=== PATIENT | male | born 1995 | race Caucasian/White ===

== ENCOUNTER 2017-02-15 19:46 | Emergency (ER) | payer SELFPAY ==
[2017-02-15] MEDS ORDERED: HYDROcodone/Acetaminophen 10/325 mg Tablet ONE (20:41)
[2017-02-15] MEDS ORDERED: Naproxen 500 MG TAB ONE (20:42)
[2017-02-15] MEDS ORDERED: Benzonatate 100 MG CAP ONE (20:42)
[2017-02-15] MEDS ORDERED: Bicillin LA 1.2 MILLION UNITS/2 ML SYRINGE ONE (20:42)
== END 2017-02-15 21:26 | disposition home or self-care (01) ==
LOC: MADERS 19:46
DX: J03.90 Acute tonsillitis, unspecified (principal); F17.210 Nicotine dependence, cigarettes, uncomplicated
CPT/HCPCS: 96372; J0561; J1040

== ENCOUNTER 2017-08-27 14:06 | Emergency (ER) | payer SELFPAY ==
[2017-08-27] MEDS ORDERED: Ondansetron ODT 4 MG TAB ONE (14:45)
== END 2017-08-27 14:57 | disposition home or self-care (01) ==
LOC: MADERS 14:06
DX: K52.9 Noninfective gastroenteritis and colitis, unspecified (principal); F32.9 Major depressive disorder, single episode, unspecified; F17.210 Nicotine dependence, cigarettes, uncomplicated
CPT/HCPCS: 99283; Q0162

== ENCOUNTER 2017-11-02 10:04 | Emergency (ER) | payer SELFPAY ==
[2017-11-02] MEDS ORDERED: HYDROcodone/Acetaminophen 10/325 mg Tablet ONE (10:27)
[2017-11-02] MEDS ORDERED: Ondansetron ODT 4 MG TAB ONE (10:27)
== END 2017-11-02 11:40 | disposition home or self-care (01) ==
LOC: MADERS 10:04
DX: R50.9 Fever, unspecified (principal); M79.1 Myalgia; F32.9 Major depressive disorder, single episode, unspecified; F17.210 Nicotine dependence, cigarettes, uncomplicated
CPT/HCPCS: 99283; Q0162

== ENCOUNTER 2019-04-08 09:47 | Emergency (ER) | payer SELFPAY | END 2019-04-08 11:15 | disposition home or self-care (01) | LOC: MADERS 09:47 | DX: L97.529 Non-pressure chronic ulcer of other part of left foot with unspecified severity (principal); L25.9 Unspecified contact dermatitis, unspecified cause; F32.9 Major depressive disorder, single episode, unspecified; F17.210 Nicotine dependence, cigarettes, uncomplicated | CPT/HCPCS: 99282 ==

== ENCOUNTER 2020-05-14 13:14 | Emergency (ER) | payer SELFPAY ==
[2020-05-14 14:44] LABS: Bilirubin Negative (Negative); Blood, Urine Trace (Negative); Glucose, Urine (Dipstick) Negative (Negative); Ketone, Urine Negative (Negative); Leukocyte Trace (Negative); Nitrite Negative (Negative); Protein, Urine (Dipstick) Negative (Neg-Trace); Urobilinogen 0.2 mg/dL (Less than 2); pH, Urine 5.5 (5.0-9.0)
[2020-05-14 14:49] LABS: Clarity Hazy (Clear); Specific Gravity, Urine 1.024 (1.002-1.036)
[2020-05-14 14:52] LABS: Bacteria/HPF Rare-Few HPF (None Seen); RBC/HPF 0-3 HPF (0-3); Sperm/HPF Rare HPF (None Seen); Squamous Epithelial 0-3 HPF (0-3); WBC/HPF 21-50 HPF (0-3)
--- NOTE | 2020-05-14 15:05 | ULT ---
ULTRASOUND SCROTUM AND TESTICLES DOPPLER DUPLEX: DATE: 05/14/2020 HISTORY: 24-year-old male with persistent posttraumatic right scrotal pain TECHNIQUE: Grayscale evaluation of intrascrotal contents. Color flow Doppler and spectral waveform analysis of t he testicles. FINDINGS: Bilateral testicles are normal in size and have homogeneously normal in echogenicity, with no evidenc e of laceration or fracture. There are tiny bilateral hydroceles. Not mentioned by the frame opener's notes, there are multiple structures adjacent to the testicles, ap parently within the scrotal sac bilaterally, that are questionable for bowel loops. There is no varicocele. Incidental finding of tiny 0.4 x 0.3 cm left epididymal cyst. IMPRESSION: 1) no evidence of traumatic injury of the testicles. 2) questionable bilateral inguinal-scrotal hernias. Recommend repeat scrotal ultrasound at [facility], [facility], for opportunity for radiologist to perform direct scanning himself in real-time.
[2020-05-14] MEDS ORDERED: HYDROcodone/Acetaminophen 5/325 mg Tablet ONE (16:22)
[2020-05-14] MEDS ORDERED: Ondansetron ODT 4 MG TAB ONE (16:22)
== END 2020-05-14 16:28 | disposition short-term general hospital (02) ==
LOC: MADERS 13:14
DX: N50.811 Right testicular pain (principal); F32.9 Major depressive disorder, single episode, unspecified; F17.210 Nicotine dependence, cigarettes, uncomplicated
CPT/HCPCS: 76870; 81003; 81015; 93976; Q0162

== ENCOUNTER 2020-06-21 20:50 | Emergency (ER) | payer SELFPAY ==
[2020-06-21] MEDS ORDERED: Tetracaine 0.5% OPHTH SOLN/PF 4 ML BOT ONE (21:12)
[2020-06-21] MEDS ORDERED: Fluorescein Opthalmic Strip ONE (21:14)
--- NOTE | 2020-06-21 21:59 | CT ---
EXAM: CT orbits without contrast HISTORY: Foreign body in left eye COMPARISON: None TECHNIQUE: Multiple contiguous axial images were obtained and a CT of the orbits without contrast. Sa gittal and coronal reformats were performed. FINDINGS: No facial fractures are identified. No facial soft tissue swelling is seen. A small metall ic foreign body is seen in the posterior aspect of the left globe. A 3 mm area of hyperdensity is seen in the globe which may resent a focal area of hemorrhage. The retrobulbar soft tissues are unrem arkable. The visualized paranasal sinuses are well aerated without evidence of opacification. The mastoid air cells are well aerated. Visualized intracranial structures are unremarkable. IMPRESSION: Metallic foreign body within the left globe
[2020-06-21] MEDS ORDERED: Metoclopramide HCl 10 MG/2 ML VIAL ONE (22:04)
[2020-06-21] MEDS ORDERED: cefTRIAXone\\ROCEPHIN 1 GM VIAL ONE (22:04)
[2020-06-21] MEDS ORDERED: Adacel (T-DAP) 0.5 ML SYRINGE ONE (22:04)
[2020-06-21] MEDS ORDERED: Morphine 4 MG/ML VIAL ONE (22:04)
[2020-06-21] MEDS ORDERED: Ciprofloxacin Lactate/D5W 400 mg/200 ml Premix ONE (22:04)
[2020-06-21] MEDS ORDERED: Sodium Chloride 0.9% 100 ML ONE (22:05)
[2020-06-21 22:07] LABS: #Basophils 0.2 thou/uL (0.0-0.2); #Eosinphils 0.2 thou/uL (0.0-0.7); #Lymphocytes 3.9 thou/uL (1.20-3.40); #Monocytes 0.5 thou/uL (0.11-0.59); #Neutrophils 5.9 thou/uL (1.40-6.50); %Basophils 1.5 % (0.0-1.0); %Eosinophils 1.5 % (0.0-10.0); %Lymphocytes 36.9 % (21.0-51.0); %Monocytes 4.9 % (0.0-10.0); %Neutrophils 55.3 % (42.0-75.0); Hemoglobin 15.1 g/dL (14.0-18.0); Mean Corpuscular HGB CONC 34.8 g/dL (32.0-36.0); Mean Corpuscular Hemoglobin 32.3 pg (27.0-31.0); Mean Corpuscular Volume 92.9 fL (78.0-98.0); Mean Platelet Volume 6.2 fL (7.4-10.4); Platelet Count 296 thou/uL (130-400); RBC Distribution Width 11.4 % (11.5-14.5); Red Blood Cell (RBC) Count 4.66 mill/uL (4.70-6.10); White Blood Cell (WBC) Count 10.6 thou/uL (4.8-10.8)
[2020-06-21 22:11] LABS: Prothrombin Time 13.3 sec (12.0-14.7)
[2020-06-21 22:20] LABS: ALT (SGPT) 12 U/L (8-55); AST (SGOT) 19 U/L (5-34); Albumin 4.9 g/dL (3.5-5.0); Alkaline Phosphatase 93 U/L (40-110); Anion Gap 18 mmol/L (10-20); BUN (Urea Nitrogen) 9 mg/dL (8.9-20.6); Bilirubin, Total 0.5 mg/dL (0.2-1.2); Calc. Creatinine Clearance 0 mL/min (70-130); Calcium 9.3 mg/dL (7.8-10.44); Carbon Dioxide 22 mmol/L (22-29); Chloride 108 mmol/L (98-107); Estimated GFR-MDRD 86; Globulin 2.8 g/dL (2.4-3.5); Glucose 84 mg/dL (70-105); Potassium 3.7 mmol/L (3.5-5.1); Protein, Total 7.7 g/dL (6.0-8.3); Sodium 144 mmol/L (136-145)
== END 2020-06-21 22:54 | disposition short-term general hospital (02) ==
LOC: MADERS 20:50
DX: S05.32XA Ocular laceration without prolapse or loss of intraocular tissue, left eye, initial encounter (principal); T15.92XA Foreign body on external eye, part unspecified, left eye, initial encounter; H33.22 Serous retinal detachment, left eye; F32.9 Major depressive disorder, single episode, unspecified; F17.210 Nicotine dependence, cigarettes, uncomplicated
CPT/HCPCS: 70480; 80053; 85025; 85610; 90471; 90715; 96365; 96375; J0696; J0744; J2270; J2765; J3490

== ENCOUNTER 2024-07-20 10:04 | Emergency (ER) | payer SELFPAY ==
[2024-07-20] MEDS ORDERED: Methocarbamol 500 MG TAB ONE (10:44)
== END 2024-07-20 11:48 | disposition home or self-care (01) ==
LOC: MADERS 10:04
DX: S50.311A Abrasion of right elbow, initial encounter (principal); M25.511 Pain in right shoulder; V86.55XA Driver of 3- or 4- wheeled all-terrain vehicle (ATV) injured in nontraffic accident, initial encounter
CPT/HCPCS: 71045; 99284